=== PATIENT | male | born 1990 | race African-American/Black ===

== ENCOUNTER 2016-06-02 16:13 | Emergency (ER) | payer OTHER ==
[~2016-06-02] VITALS: Ht 170.2 cm; Wt 81.6 kg
[2016-06-02 16:40] VITALS: BP 131/77
--- NOTE | 2016-06-02 16:41 | Emergency Room Report ---
History of Present Illness General Chief Complaint: Chest Pain Source: Patient Present Illness HPI Patient presents with chest pain and vomiting blood. This happened while driving. He is also weak. The pain is more in his upper abdomen radiating to his chest. 2/10 constant and not exertional. The pain is more burning. He has not had this before. No fevers, cough, sore throat. No melena. Moved bowels earlier. The blood was scant and mixed with saliva. History of drinking alcohol last night and also has been taking Advil yesterday. He's never had vomiting blood in the past however he's had chest pain like this in the past. No dizziness, palpitations. No prior medical problems. Allergies: Coded Allergies: No Known Allergies (Unverified , 06/02/16) Patient History Past Medical History: see triage record Social History: Reports: alcohol use, drug use - THC, smoking Social History Narrative Works driving Reviewed Nursing Documentation: PMH: Agreed, PSxH: Agreed Nursing Documentation-PMH Past Medical History: No Stated History Review of Systems All Other Systems: negative except mentioned in HPI Physical Exam Vital Signs Date Time Temp Pulse Resp B/P Pulse Ox O2 Delivery O2 Flow Rate FiO2 06/02/16 16:24 98.2 74 16 132/82 100 Room Air Sp02 EP Interpretation: reviewed, normal General Appearance: well appearing, no apparent distress, GCS 15 Head: normocephalic Eyes: bilateral eye PERRL, bilateral eye normal inspection ENT: moist mucus membranes Neck: supple Respiratory: lungs clear, normal breath sounds Cardiovascular #1: regular rate, rhythm Cardiovascular #2: 2+ radial (R) Gastrointestinal: normal inspection, normal bowel sounds, non tender, no mass, non-distended Musculoskeletal: back normal, gait/station normal, normal range of motion Neurologic: alert, oriented x3, grossly normal Psychiatric: mood/affect normal Skin: normal inspection, warm/dry Medical Decision Making Diagnostic Impression: Primary Impression: Chest pain Qualified Codes: R07.9 - Chest pain, unspecified Additional Impression: Vomiting blood Qualified Codes: K92.0 - Hematemesis ER Course Patient presents with chest pain and vomiting blood. His risk factors are alcohol use and NSAID use, no apparent cardiac risk factors except for smoking. DDx: gastritis, GERD, PUD, pancreatitis, AMI/ACS. Patient is evaluated EKG, labs. His history sounds more GI in origin. Initially with IV hydration Pepcid and Zofran. Labs with good h/h and normal lipase. Patient improved with treatment. Resistant to hearing potential diagnoses or treatment plan. Patient stable for outpatient observation and treatment. Laboratory Tests Test 06/02/16 16:38 06/02/16 16:50 White Blood Count 4.9 K/UL (4.8-10.8) Red Blood Count 4.84 M/UL (4.70-6.10) Hemoglobin 16.4 G/DL (14.2-18.0) Hematocrit 45.9 % (42.0-52.0) Mean Corpuscular Volume 95 FL (80-99) Mean Corpuscular Hemoglobin 33.9 PG (27.0-31.0) H Mean Corpuscular Hemoglobin Concent 35.7 G/DL (32.0-36.0) Red Cell Distribution Width 10.9 % (11.6-14.8) L Platelet Count 224 K/UL (150-450) Mean Platelet Volume 6.7 FL (6.5-10.1) Neutrophils (%) (Auto) 58.6 % (45.0-75.0) Lymphocytes (%) (Auto) 32.0 % (20.0-45.0) Monocytes (%) (Auto) 6.9 % (1.0-10.0) Eosinophils (%) (Auto) 1.1 % (0.0-3.0) Basophils (%) (Auto) 1.4 % (0.0-2.0) Prothrombin Time 10.8 SEC (9.30-11.50) Prothrombin Time INR 1.1 (0.9-1.1) PTT 31 SEC (23-33) Sodium Level 137 mEQ/L (135-145) Potassium Level 4.2 mEQ/L (3.4-4.9) Chloride Level 98 mEQ/L (98-107) Carbon Dioxide Level 24 mEQ/L (20-30) Anion Gap 15 (5-15) Blood Urea Nitrogen 17 mg/dL (7-23) Creatinine 1.2 mg/dL (0.7-1.2) Estimate Glomerular Filtration Rate > 60 mL/min (>60) Glucose Level 99 mg/dL (74-106) Calcium Level 9.4 mg/dL (8.6-10.2) Total Bilirubin 1.2 mg/dL (0.0-1.2) Direct Bilirubin 0.2 mg/dL (0.1-0.3) Aspartate Amino Transferase (AST) 23 U/L (5-40) Alanine Aminotransferase (ALT) 15 U/L (3-41) Alkaline Phosphatase 53 U/L (40-129) Total Protein 7.0 g/dL (6.6-8.7) Albumin 4.6 g/dL (3.5-5.2) Globulin 2.4 g/dL Albumin/Globulin Ratio 1.9 (1.0-2.7) Lipase 32 U/L (< 60) Serum Alcohol < 10 mg/dL Urine Color Pale yellow Urine Appearance Clear Urine pH 7 (4.5-8.0) Urine Specific Martin 1.015 (1.005-1.035) Urine Protein Negative (NEGATIVE) Urine Glucose (UA) Negative (NEGATIVE) Urine Ketones Negative (NEGATIVE) Urine Occult Blood Negative (NEGATIVE) Urine Nitrite Negative (NEGATIVE) Urine Bilirubin Negative (NEGATIVE) Urine Urobilinogen Normal MG/DL (0.0-1.0) Urine Leukocyte Esterase Negative (NEGATIVE) Urine Opiates Screen Negative (NEGATIVE) Urine Barbiturates Screen Negative (NEGATIVE) Phencyclidine (PCP) Screen Negative (NEGATIVE) Urine Amphetamines Screen Negative (NEGATIVE) Urine Benzodiazepines Screen Negative (NEGATIVE) Urine Cocaine Screen Negative (NEGATIVE) Urine Marijuana (THC) Screen Positive (NEGATIVE) H EKG Diagnostic Results Rate: normal Rhythm: NSR ST Segments: no acute changes - J point elevation Rhythm Strip Diag. Results EP Interpretation: yes Rhythm: NSR, no PVC's, no ectopy Chest X-Ray Diagnostic Results EP Interpretation: Yes Findings: no consolidation, no effusion, no pneumothorax, no acute cardiopulmonary disease Number of Views: 1 Last Vital Signs Date Time Temp Pulse Resp B/P Pulse Ox O2 Delivery O2 Flow Rate FiO2 06/02/16 18:43 98.2 76 16 126/75 98 Room Air Status: improved Disposition: HOME, SELF-CARE Condition: Improved Scripts Ondansetron Odt* (ZOFRAN ODT*) 4 Mg Tab.rapdis 4 MG ORAL Q8H Y for Nausea & Vomiting, #6 TAB 0 Refills Prov: Esau Fuller M.D. 06/02/16 Famotidine (PEPCID) 20 Mg Tablet 20 MG ORAL DAILY, #30 TAB 0 Refills Prov: Esau Fuller M.D. 06/02/16 Esau Fuller M.D. Jun 02, 2016 16:41
[2016-06-02] MEDS ORDERED: Famotidine 20 MG/ 2ML VIAL IVP ONE (16:45)
[2016-06-02 16:53] LABS: BASOPHILS % (AUTO) 1.4 % (0.0-2.0); EOSINOPHILS % (AUTO) 1.1 % (0.0-3.0); MEAN CORPUSCULAR HEMOGLOBIN 33.9 PG (27.0-31.0); MEAN CORPUSCULAR HGB CONC 35.7 G/DL (32.0-36.0); MEAN CORPUSCULAR VOLUME 95 FL (80-99); MEAN PLATELET VOLUME 6.7 FL (6.5-10.1); MONOCYTES % (AUTO) 6.9 % (1.0-10.0); NEUTROPHILS % (AUTO) 58.6 % (45.0-75.0); PLATELET COUNT 224 K/UL (150-450); RED BLOOD COUNT 4.84 M/UL (4.70-6.10); RED CELL DISTRIBUTION WIDTH 10.9 % (11.6-14.8); WHITE BLOOD COUNT 4.9 K/UL (4.8-10.8)
[2016-06-02 16:58] LABS: KETONES,URINE NEGATIVE (NEGATIVE); LEUKOCYTE ESTERASE ,URINE NEGATIVE (NEGATIVE); NITRITE,URINE NEGATIVE (NEGATIVE); PH,URINE 7 (4.5-8.0); PROTEIN,URINE NEGATIVE (NEGATIVE); UROBILINOGEN,URINE NORMAL MG/DL (0.0-1.0)
[2016-06-02 17:05] LABS: APPEARANCE,URINE CLEAR
[2016-06-02 17:07] LABS: ALANINE AMINOTRANSFERASE 15 U/L (3-41); ALBUMIN/GLOBULIN RATIO 1.9 (1.0-2.7); ALCOHOL < 10 mg/dL; ANION GAP 15 (5-15); ASPARTATE AMINO TRANSFERASE 23 U/L (5-40); CALCIUM 9.4 mg/dL (8.6-10.2); CARBON DIOXIDE 24 mEQ/L (20-30); CHLORIDE 98 mEQ/L (98-107); CREATININE 1.2 mg/dL (0.7-1.2); GLOMERULAR FILTRATION RATE > 60 mL/min (>60); HEMOLYSIS 13; LIPASE 32 U/L (< 60); POTASSIUM 4.2 mEQ/L (3.4-4.9); SODIUM 137 mEQ/L (135-145)
[2016-06-02 17:12] LABS: INR 1.1 (0.9-1.1); PROTHROMBIN TIME 10.8 SEC (9.30-11.50)
[2016-06-02 18:00] LABS: BILIRUBIN,DIRECT 0.2 mg/dL (0.1-0.3)
[2016-06-02 18:36] VITALS: BP 126/75
[2016-06-02] MEDS ORDERED: PEPCID20 MG ORAL (18:37)
[2016-06-02] MEDS ORDERED: ZOFRAN ODT4 MG ORAL (18:37)
[2016-06-02 18:43] VITALS: BP 126/75
--- NOTE | 2016-06-03 10:52 | Diagnostic Imaging Report ---
Indication: Chest pain Technique: One view of the chest Comparison: none Findings: Vascular stents are seen in the pulmonary shruti bilaterally. The lungs and pleural spaces are clear. Heart size is borderline enlarged Impression: No acute process Bilateral pulmonary hilar vascular stents. Correlate with surgical history This agrees with the preliminary interpretation provided by the emergency room physician
--- NOTE | 2016-06-03 10:53 | Diagnostic Imaging Report ---
Indication: Abdominal pain Technique: Supine view of the abdomen Comparison: none Findings: Bowel gas pattern is unremarkable. No unusual masses or calcifications. Impression: No acute process
--- NOTE | 2016-06-03 19:49 | Cardiology Report ---
APPROVED REPORT EKG Measurement Heart [id number] IN [id number] Normal sinus rhythm Right axis deviation Right ventricular hypertrophy Early repolarization Abnormal ECG
== END 2016-06-02 18:44 | disposition home or self-care (01) ==
LOC: EMR 16:30
DX: R07.9 Chest pain, unspecified (principal); K92.0 Hematemesis; R10.10 Upper abdominal pain, unspecified; F17.200 Nicotine dependence, unspecified, uncomplicated; F12.10 Cannabis abuse, uncomplicated
CPT/HCPCS: 36415; 71010; 74000; 80053; 80300; 81003; 82248; 83690; 85025; 85610; 85730; 93005; 96374; 96375; 99284; G0480; J2405; S0028; 80329

== ENCOUNTER 2017-09-08 00:11 | Emergency (ER) | payer OTHER ==
[~2017-09-08] VITALS: Ht 170.2 cm; Wt 72.6 kg
[~2017-09-08 00:11] MED LIST: PEPCID20 MG ORAL; ZOFRAN ODT4 MG ORAL
[2017-09-08 00:23] VITALS: BP 116/65
[2017-09-08] MEDS ORDERED: IBUPROFEN600 MG ORAL (01:22)
[2017-09-08] MEDS ORDERED: Bacitracin Oint UD TOPIC ONE (01:30)
[2017-09-08 01:35] VITALS: BP 116/65
--- NOTE | 2017-09-08 03:36 | Emergency Room Report ---
History of Present Illness General Chief Complaint: Upper Extremity Injury Source: Patient Present Illness HPI 26-year-old male presents ED complaining of left thumb pain and swelling. States he injured his thumb tonight while trying to mount a TV. Pain is pressure, 9 out of 10, nonradiating. States also notes abrasion to his left thumb. Tetanus unknown. Denies any other injuries. No other aggravating relieving factors. Denies any other associated symptoms Allergies: Coded Allergies: No Known Allergies (Unverified , 06/02/16) Patient History Past Medical History: none Past Surgical History: none Pertinent Family History: none Social History: Denies: smoking, alcohol use, drug use Immunizations: UTD Reviewed Nursing Documentation: PMH: Agreed; PSxH: Agreed Nursing Documentation-PMH Past Medical History: No History, Except For Hx Cardiac Problems: Yes - Heart Murmur Review of Systems All Other Systems: negative except mentioned in HPI Physical Exam Vital Signs Date Time Temp Pulse Resp B/P (MAP) Pulse Ox O2 Delivery O2 Flow Rate FiO2 09/08/17 00:17 98.1 67 16 116/65 97 Room Air 98.1 Sp02 EP Interpretation: reviewed, normal General Appearance: no apparent distress, alert, GCS 15, non-toxic Head: normocephalic Eyes: bilateral eye normal inspection, bilateral eye PERRL ENT: normal ENT inspection Neck: normal inspection Respiratory: normal inspection Cardiovascular #1: normal inspection Gastrointestinal: normal inspection Rectal: deferred Genitourinary: no CVA tenderness Musculoskeletal: tender - L thumb Neurologic: alert, oriented x3, responsive, motor strength/tone normal, sensory intact, speech normal Psychiatric: normal inspection Skin: abrasions - L thumb Lymphatic: normal inspection Procedures Splinting Splinting : Consent: Verbal Pre-Made Type: velcro Splint: thumb spica Pre-Proc Neuro Vasc Exam: normal Post-Proc Neuro Vasc Exam: normal Patient Tolerated: Well Complications: None Medical Decision Making Diagnostic Impression: Primary Impression: Thumb injury Qualified Codes: S69.92XA - Unspecified injury of left wrist, hand and finger( s), initial encounter ER Course Hospital Course 26-year-old M presents to ED complaining of L thumb pain Differential diagnoses include: Fracture, dislocation, sprain, contusion Clinical course Patient placed on stretcher. After initial history and physical, I ordered xrays of L hand Xrays prelim read shows no acute fracture/dislocation. howeer there is marked soft tissue swelling. Patient refuses tetanus. Wound is cleaned and bacitracin applied. placed in thumb spica splint Diagnosis - thumb injury Stable and discharged to home with prescription for Motrin. apply ice. weight bear as tolerated. Followup with PMD. Return to ED if symptoms recur or worsen Other X-Ray Diagnostic Results Other X-Ray Diagnostic Results : X-Ray ordered: L hand # of Views/Limited Vs Complete: 3 View Indication: Pain EP Interpretation: Yes Interpretation: no dislocation, no fractures, other - +soft tissue swelling Impression: No acute disease Electronically Signed by: Electronically signed by Fabio Parekh MD Last Vital Signs Date Time Temp Pulse Resp B/P (MAP) Pulse Ox O2 Delivery O2 Flow Rate FiO2 09/08/17 01:35 67 16 116/65 97 09/08/17 00:23 98.1 Room Air 98.1 Status: improved Disposition: HOME, SELF-CARE Condition: Stable Scripts Ibuprofen* (MOTRIN*) 600 Mg Tablet 600 MG ORAL Q8H PRN for For Pain, #30 TAB 0 Refills Prov: Fabio Parekh MD 09/08/17 Patient Instructions: Thumb Sprain Fabio Parekh MD Sep 08, 2017 03:36
--- NOTE | 2017-09-08 18:35 | Diagnostic Imaging Report ---
Indication: Pain Technique: XRAY Hand Complete L Comparison: None Findings: No evidence of acute fracture or dislocation. Alignment and joint spaces are preserved. There is soft tissue swelling about the lateral aspect of the thumb. No radiopaque foreign body identified. Impression: Soft tissue swelling. No acute fracture or dislocation.
== END 2017-09-08 01:35 | disposition home or self-care (01) ==
LOC: EMR 00:41
DX: S60.312A Abrasion of left thumb, initial encounter (principal); W22.8XXA Striking against or struck by other objects, initial encounter; Y92.9 Unspecified place or not applicable
CPT/HCPCS: 29130; 29280; 99283

== ENCOUNTER 2017-11-08 11:21 | Emergency (ER) | payer OTHER ==
[~2017-11-08] VITALS: Ht 170.2 cm; Wt 79.4 kg
[~2017-11-08 11:21] MED LIST changes: +IBUPROFEN600 MG ORAL
[2017-11-08 11:34] VITALS: BP 150/83
--- NOTE | 2017-11-08 12:07 | Emergency Room Report ---
History of Present Illness General Chief Complaint: General Complaint Source: Patient Present Illness HPI 26-year-old male with no medical problems presents feeling tremulous after smoking marijuana 30 minutes prior to arrival. He denies chest pain, headaches , denies any pain complaints at all actually, he denies shortness of breath, he reports he doesn't use any other drugs other than smoking marijuana. Allergies: Coded Allergies: No Known Allergies (Unverified , 06/02/16) Patient History Past Medical History: see triage record Reviewed Nursing Documentation: PMH: Agreed; PSxH: Agreed Nursing Documentation-PMH Past Medical History: No History, Except For Hx Cardiac Problems: Yes - Heart Murmur Review of Systems All Other Systems: negative except mentioned in HPI Physical Exam Vital Signs Date Time Temp Pulse Resp B/P (MAP) Pulse Ox O2 Delivery O2 Flow Rate FiO2 11/08/17 11:32 97.9 98 18 150/83 98 Room Air 97.9 Sp02 EP Interpretation: reviewed, normal General Appearance: no apparent distress, alert, non-toxic Head: normocephalic Eyes: bilateral eye normal inspection, bilateral eye PERRL, bilateral eye EOMI , bilateral eye Scleral Injection ENT: normal ENT inspection, hearing grossly normal, normal pharynx, no angioedema, normal voice, moist mucus membranes Neck: normal inspection, full range of motion, supple, supple/symm/no masses Respiratory: chest non-tender, lungs clear, normal breath sounds, chest symmetrical, palpation of chest normal Cardiovascular #1: normal peripheral pulses, regular rate, rhythm, no JVD, systolic murmur Cardiovascular #2: 2+ radial (R), 2+ radial (L), 2+ dorsalis pedis (R), 2+ dorsalis pedis (L) Gastrointestinal: normal inspection, non tender, soft, no mass, no guarding, no rebound Rectal: deferred Genitourinary: normal inspection, no CVA tenderness Musculoskeletal: back normal, gait/station normal, normal range of motion, non- tender, no calf tenderness, Ankur's Sign negative Neurologic: normal inspection, alert, oriented x3, responsive, technology solutions architect III-XII nml as tested, motor strength/tone normal, DTRs symmetric, sensory intact, cerebellar normal, normal gait, speech normal Psychiatric: normal inspection, judgement/insight normal, memory normal, no suicidal/homicidal ideation, no delusions, anxious Skin: normal color, no rash, warm/dry, normal turgor Lymphatic: no adenopathy Medical Decision Making Diagnostic Impression: Primary Impression: Marijuana intoxication ER Course Will discharge patient, he is well-appearing, symptoms likely secondary to smoking marijuana, no obvious tremor on exam and sensory was very clear although he is slightly anxious Last Vital Signs Date Time Temp Pulse Resp B/P (MAP) Pulse Ox O2 Delivery O2 Flow Rate FiO2 11/08/17 11:34 97.9 99 18 150/83 98 Room Air 97.9 Disposition: HOME, SELF-CARE Condition: Stable ANGELA CRONIN M.D Nov 08, 2017 12:07
[2017-11-08 13:00] VITALS: BP 137/78
== END 2017-11-08 13:01 | disposition home or self-care (01) ==
LOC: EMR 12:09
DX: F12.10 Cannabis abuse, uncomplicated (principal); R01.1 Cardiac murmur, unspecified
CPT/HCPCS: 99282